=== PATIENT | female | born 1945 | race Caucasian/White ===

== ENCOUNTER → 2017-10-10 | Outpatient (CLI) | payer OTHER ==
[~2017-10-10] MED LIST: AMBEREN; ASCO500; ASTRAGALUS ROOT1 GM; CALCIT950; CHOL10002; ESTRTP; IODINE; Ipratropium Bro15 ML; MAGNESIUM; METPRE4DP PO; NATURAL HORMONE; OMEG1CAP30; THYR60; VITS/SUPPS; Vitamin A10000 UNIT; [UNRECOGNIZED DRUG - CODE]; [UNRECOGNIZED DRUG - OTHER]
== END | disposition home or self-care (01) ==
LOC: LAB SHORT 07:16 → PLD 07:16
DX: D22.5 Melanocytic nevi of trunk (principal)
CPT/HCPCS: 88305

== ENCOUNTER 2019-12-03 23:30 | Emergency (ER) | payer OTHER ==
[~2019-12-03] VITALS: Ht 165.1 cm; Wt 54.4 kg
[2019-12-04 01:58] LABS: Alanine Aminotransfer (ALT/SGP 34 U/L (12-78); Albumin, Blood 3.9 g/dL (3.4-5.0); Albumin/Globulin Ratio 1.3 (0.8-1.8); Alk Phos 75 U/L (50-136); Anion Gap 10 mmol/L (6-16); Aspartate Aminotrans (AST/SGOT 38 U/L (12-37); Bilirubin, Total 0.4 mg/dL (0.1-1.0); Blood Urea Nitrogen 20 mg/dL (8-24); Bun/Creatinine Ratio 21.3 (12.0-20.0); CO2, Blood 24 mmol/L (21-32); Calcium, Blood 8.5 mg/dL (8.5-10.1); Chloride, Blood 103 mmol/L (98-108); Creatinine, Blood 0.94 mg/dL (0.40-1.00); Globulin, Blood 3.1 g/dL (2.2-4.0); Glomerular Filtration Rate >60 (60-); Glucose, Blood 118 mg/dL (70-99); Potassium, Blood 3.5 mmol/L (3.5-5.5); Sodium, Blood 137 mmol/L (136-145); Troponin I <0.015 ng/mL (0.000-0.040)
[2019-12-04 02:04] LABS: BASOPHILS ABSOLUTE AUTO 0.06 K/mm3 (0.00-0.23); BASOPHILS PERCENT AUTO 1 % (0-2); EOSINOPHILS ABSOLUTE AUTO 0.11 K/mm3 (0.00-0.68); EOSINOPHILS PERCENT AUTO 2 % (0-6); Hematocrit 40.5 % (33.0-51.0); Hemoglobin 13.3 g/dL (11.5-16.0); IMMATURE GRAN ABSOLUTE AUTO 0.02 K/mm3 (0.00-0.10); IMMATURE GRAN PERCENT AUTO 0 % (0-1); LYMPHOCYTES ABSOLUTE AUTO 2.03 K/mm3 (0.84-5.20); LYMPHOCYTES PERCENT AUTO 42 % (21-46); MONOCYTES ABSOLUTE AUTO 0.34 K/mm3 (0.16-1.47); MONOCYTES PERCENT AUTO 7 % (4-13); Mean Corpuscular HGB 30.8 pg (26.0-34.0); Mean Corpuscular HGB Conc 32.8 g/dL (31.5-36.5); Mean Corpuscular Volume 94 fL (80-100); Mean Platelet Volume 11.4 fL (9.1-12.4); NEUTROPHILS ABSOLUTE AUTO 2.23 K/mm3 (1.96-9.15); NEUTROPHILS PERCENT AUTO 47 % (41-73); Platelet Count 223 K/mm3 (150-400); RDW Coefficient Variation 12.7 % (11.7-14.2); Red Blood Cell Count 4.32 M/mm3 (3.80-5.20); White Blood Cell Count 4.79 K/mm3 (4.00-11.30)
[2020-01-12] MEDS ORDERED: METO25 PO (11:47)
== END 2019-12-04 03:21 | disposition home or self-care (01) ==
LOC: ER 23:30
PROVIDERS: Emergency Medicine
DX: I48.0 Paroxysmal atrial fibrillation (principal)
CPT/HCPCS: 36415; 80053; 84484; 85025; 93005; 93010; 99285-25

== ENCOUNTER → 2020-03-07 | Outpatient (CLI) | payer OTHER ==
[~2020-03-07] MED LIST changes: +METO25 PO
== END | disposition home or self-care (01) ==
LOC: LAB SHORT 11:13 → PLD 11:13
DX: D48.5 Neoplasm of uncertain behavior of skin (principal)
CPT/HCPCS: 88305

== ENCOUNTER 2022-01-31 07:56 | Day surgery (SDC) | payer OTHER ==
[~2022-01-31] VITALS: Ht 165.1 cm; Wt 49.9 kg
[~2022-01-31 07:56] MED LIST changes: +ARMOUR THYROID90 M1 PO; +Aspir 8181 MG PO
[2022-01-31] MEDS ORDERED: ALORA1 EA11 (08:39)
== END 2022-01-31 09:46 | disposition home or self-care (01) ==
LOC: ORSCSDS 07:56
PROVIDERS: Internal Medicine Gastroenterology
PROC: 0DJD8ZZ Inspection of Lower Intestinal Tract, Via Natural or Artificial Opening Endoscopic (ICD-10-PCS; principal; 2022-01-31 09:15)
DX: Z12.11 Encounter for screening for malignant neoplasm of colon (principal); Z86.010 Personal history of colon polyps; K57.30 Diverticulosis of large intestine without perforation or abscess without bleeding; Z79.899 Other long term (current) drug therapy
CPT/HCPCS: J2704; J7120

== ENCOUNTER 2022-11-19 09:12 | Day surgery (SDC) | payer OTHER ==
[~2022-11-19] VITALS: Ht 165.1 cm; Wt 50.2 kg
[~2022-11-19 09:12] MED LIST changes: +ALORA1 EA11
[2022-11-19 11:51] VITALS: BP 100/56
--- NOTE | 2022-11-19 11:59 | NUR ---
11/19/22 1159 Lovely Valdes LATE ENTRY PT SLIGHTLY UNSTEADY UPON TRANSFER INTO THE WHEEELCHAIR. RN PROVIDED STAND BY ASSIST. RN SPOKE WITH PT AND PT'S REGARDING STAND BY ASSIST FROM CAR INTO THE HOUSE. RN ENCOURAGED PT TO REST AT HOME AND TO HAVE ASSISTANCE WHEN WALKING FOR THE FIRST FEW HOURS. PT AND PT'S VOICED UNDERSTANDING.
== END 2022-11-19 11:30 | disposition home or self-care (01) ==
LOC: ORSCSDS 09:12
PROVIDERS: Internal Medicine Gastroenterology
PROC: 0DBE8ZX Excision of Large Intestine, Via Natural or Artificial Opening Endoscopic, Diagnostic (ICD-10-PCS; principal; 2022-11-19 10:30)
DX: R19.4 Change in bowel habit (principal); K57.30 Diverticulosis of large intestine without perforation or abscess without bleeding; Z79.899 Other long term (current) drug therapy
CPT/HCPCS: 88305; J2704; J7120

== ENCOUNTER → 2023-11-27 | Outpatient (CLI) | payer OTHER ==
[2023-11-27 10:34] LABS: BASOPHILS ABSOLUTE AUTO 0.07 K/mm3 (0.00-0.23); BASOPHILS PERCENT AUTO 1 % (0-2); EOSINOPHILS ABSOLUTE AUTO 0.09 K/mm3 (0.00-0.68); EOSINOPHILS PERCENT AUTO 2 % (0-6); Hematocrit 37.6 % (33.0-51.0); Hemoglobin 12.9 g/dL (11.5-16.0); IMMATURE GRAN ABSOLUTE AUTO 0.02 K/mm3 (0.00-0.10); IMMATURE GRAN PERCENT AUTO 0 % (0-1); LYMPHOCYTES ABSOLUTE AUTO 1.96 K/mm3 (0.84-5.20); LYMPHOCYTES PERCENT AUTO 36 % (21-46); MONOCYTES PERCENT AUTO 15 % (4-13); Mean Corpuscular HGB 32.9 pg (26.0-34.0); Mean Corpuscular HGB Conc 34.3 g/dL (31.5-36.5); Mean Corpuscular Volume 96 fL (80-100); Mean Platelet Volume 11.1 fL (9.1-12.4); NEUTROPHILS ABSOLUTE AUTO 2.53 K/mm3 (1.96-9.15); NEUTROPHILS PERCENT AUTO 46 % (41-73); Platelet Count 227 K/mm3 (150-400); RDW Coefficient Variation 14.3 % (11.7-14.2); RDW Standard Deviation 48.9 fL (35.1-46.3); Red Blood Cell Count 3.92 M/mm3 (3.80-5.20); White Blood Cell Count 5.47 K/mm3 (4.00-11.30)
[2023-11-27 10:48] LABS: Alanine Aminotransfer (ALT/SGP 24 U/L (12-78); Albumin/Globulin Ratio 1.3 (0.8-1.8); Alk Phos 66 U/L (50-136); Anion Gap 8 mmol/L (3-11); Aspartate Aminotrans (AST/SGOT 22 U/L (12-37); Bilirubin, Total 0.6 mg/dL (0.1-1.0); Blood Urea Nitrogen 21 mg/dL (8-24); Bun/Creatinine Ratio 20.8 (12.0-20.0); CHOL/HDL RATIO 1.7; CO2, Blood 29 mmol/L (21-32); Calcium, Blood 9.2 mg/dL (8.5-10.1); Chloride, Blood 104 mmol/L (98-108); Cholesterol 253 mg/dL (50-200); Creatinine, Blood 1.01 mg/dL (0.40-1.00); Free Thyroxine 0.75 ng/dL (0.70-1.60); Glomerular Filtration Rate 57 (60-); Glucose, Blood 91 mg/dL (70-99); HDL Cholesterol 146 mg/dL (>39); LDL/HDL RATIO 0.7; Low Density Lipoprotein Chol 96 mg/dL (0-110); Sodium, Blood 137 mmol/L (136-145); Triglycerides 53 mg/dL (30-160); Very Low Density Lipoprot Chol 10 mg/dL (6-32)
[2023-11-27 10:51] LABS: Triiodothyronine, Free 2.26 pg/mL (2.18-3.98)
== END | disposition home or self-care (01) ==
LOC: LAB FUT 10-12 17:05 → LAB SHORT 08:10 → LAB 08:10
PROVIDERS: Internal Medicine
DX: E03.9 Hypothyroidism, unspecified (principal); I48.0 Paroxysmal atrial fibrillation; E55.9 Vitamin D deficiency, unspecified; E78.5 Hyperlipidemia, unspecified; R19.4 Change in bowel habit
CPT/HCPCS: 36415; 80053; 80061; 84439; 84443; 84481; 85025